=== PATIENT | female | born 1955 | race Caucasian/White ===

== ENCOUNTER 2018-06-16 08:58 | Outpatient (CLI) | payer OTHER | END 2018-06-16 08:59 | disposition home or self-care (01) | LOC: C.RADH 08:58 | DX: M54.5 Low back pain (principal) ==

== ENCOUNTER 2018-06-23 10:41 | Outpatient (CLI) | payer OTHER | END 2018-06-23 10:42 | disposition home or self-care (01) | LOC: C.DEXAIC 10:41 | DX: M81.8 Other osteoporosis without current pathological fracture (principal) ==

== ENCOUNTER 2018-07-04 09:12 | Observation (INO) | payer OTHER | END 2018-07-05 17:35 | disposition home or self-care (01) | LOC: C.ER 09:12 → C.9E 11:15 → C.6T 11:47 | PROVIDERS: ADMIT Hospitalist | CPT/HCPCS: 36415; 71045; 80053; 80061; 81001; 82550; 82553; 83036; 83880; 84443; 84484; 85025; 85378; 85610; 85730; 87086; 93005; 93321; 99285; G0378; J1650; J1885 ==